=== PATIENT | male | born 1970 | race Caucasian/White ===

== ENCOUNTER 2024-07-06 04:13 | Emergency (ER) | payer BC, SELFPAY ==
[2024-07-06 04:16] VITALS: BP 205/140
[2024-07-06 04:32] VITALS: BMI 29.6
--- NOTE | 2024-07-06 04:39 | ED.GENMED ---
History of Present Illness
General
Chief Complaint: Blood Pressure Problem
Source: patient
Exam Limitations: none
Time Seen by Provider: 07/06/24 04:22
Nursing documentation reviewed up to this point in time: agreed with
History of Present Illness
History of Present Illness:
This is a 54-year-old gentleman with history of hypertension chronically maintained on lisinopril 10 mg daily. He also has history of mitral valve repair 3 years ago. He states blood pressure is generally well-controlled 120s over 70s to 80. He
follows with a nurse discharge planner, Dr. Tello in [facility] cardiology. After receiving COVID booster vaccine 1 month ago he has not been feeling well with some nasal congestion, fatigue, intermittent cough and intermittent shortness of breath.
His blood pressure has been trending up over the past month as well. His nurse discharge planner increased his lisinopril dose to 20 mg 3 weeks ago. Despite doing so his blood pressure has remained somewhat elevated, he has had intermittent shortness of
breath and palpitations and has been using his inhaler with relief of shortness of breath. He has not had a fever and he has tested himself for COVID and it has been negative.
He admits to consuming a fairly salty meal last night with sausage and noted some heart palpitations tonight feeling that his heart was beating somewhat hard and mildly rapid accompanied with some difficulty sleeping. He has been checking his blood
pressure throughout the night and concerned when it 'keeps going up' He denies chest pain, no back pain, no dizziness nor lightheadedness, no leg pain or swelling, no headache.
He took his lisinopril 20 mg dose just prior to arrival. Other than this his only other daily medication is low-dose aspirin.
Blood pressure at home 200/140.
He has no history of CAD, no history of CHF, no history of hyperlipidemia nor diabetes. He is a non-smoker. No recent travel.
He is prescribed rescue inhaler for occasional cough and shortness of breath. Generally 1 inhaler lasts him a full year.
Past History
Past History
ED Past Medical History: Asthma, HTN and Valvular disease (Mitral valve repair 2020)
ED Past Surgical History: Cardiac (Mitral valve repair 2020)
Social History
Tobacco: Non-smoker
Alcohol: Occasional
Drug: None
Personal:
Living: with family
Employment: Employed
Family History
Family History: Other (Noncontributory)
Phy Exam
Physical Exam
Physical Exam:
GENERAL: 54-year-old gentleman appears his stated age, awake and alert, mildly apprehensive otherwise in no acute distress. Easily communicative. Mild nasal, stuffy voice is noted. He is afebrile. Hypertensive at 205/140. is accompanying.
EYE: anicteric
NECK: Supple, nontender, no meningismus, no significant adenopathy. No JVD.
ENT: posterior pharynx is clear, oral mucosa is moist. TM clear b/l, nares have moderately boggy pale blue turbinates with scant clear rhinorrhea.
CARDIAC: Regular rate rhythm, mildly tachycardic. no murmur.
LUNGS: Clear breath sounds bilaterally, no acute respiratory distress, no wheezes/rales/rhonchi
ABDOMEN: Soft, nondistended, without focal tenderness, no r/g, normoactive BS.
NEUROLOGICAL: Alert and oriented x3, no focal neuro deficits. Gait is steady.
SKIN: Warm and dry, normal color, skin intact. No rash.
MUSCULOSKELETAL: No C/C/E. peripheral pulses are full and equal b/l. No palpable tenderness.
PSYCH: Normal and appropriate interaction.
Course
Orders/Labs/Results
Orders:
Orders
07/06/24 04:35
EKG [Electrocardiogram (*1)] Urgent
Reason for Study: Hypertension, Benign
EKG- Treatment ONCE
07/06/24 04:44
Complete Blood Count/With Diff Urgent
Comprehensive Metabolic Panel Urgent
Magnesium Urgent
NT-proBNP Urgent
TSH Reflex To Free T4 Urgent
Troponin I Urgent
07/06/24 04:48
Metoprolol [Lopressor] 5 mg IV NOW STA
Abnormal Lab Results
07/06/24
04:44
MCH 32.2 H pg
(27.0-31.0)
Glucose 111 H mg/dl
(70-99)
Calcium 10.5 H mg/dl
(8.4-10.2)
07/06/24 04:44
07/06/24 04:44
Vital Signs
Initial and Last Documented VS:
Initial Vital Signs
Temp Pulse Resp BP Pulse Ox
97.8 F 108 24 205/140 98
07/06/24 04:16 07/06/24 04:16 07/06/24 04:16 07/06/24 04:16 07/06/24 04:16
Last Documented Vital Signs
Temp Pulse Resp BP Pulse Ox
97.8 F 78 10 138/104 98
07/06/24 04:16 07/06/24 05:30 07/06/24 05:30 07/06/24 05:30 07/06/24 04:16
MDM/Problems Addressed
Differential Diagnosis Includes:
History of hypertension, he presents with accelerated hypertension. Concern for endorgan damage such as acute kidney injury, CHF, coronary ischemia. No complaints of headache, no focal neurodeficits�nothing to suggest neurologic involvement.
Will check labs, EKG
Will trial an IV dose of Lopressor.
Chronic conditions affecting care: HTN
Acute Exacerbation and/or Progression of Chronic Illness: HTN
*Pulse Oximetry
Patient hypoxic: no
*EKG
Interpreted by ED Provider?: Yes
Comparison EKG: no comparison EKG present
Rate: normal
Rhythm: sinus
[place]: normal axis
Interval: normal interval
QRS Pattern: normal QRS
Ischemia: non-specific ST changes (Flattened T waves inferolaterally. No old EKG to compare)
*Director Strategy Interpretation
Rate: normal
Interpretation: normal
Rhythm: sinus
*Critical Care Note
Total Time (30-74mins, 75-104mins- exclusive of procedures): Not Applicable
Update Note
Update Note:
Blood pressure improving without intervention. I had initially ordered IV Lopressor but blood pressure markedly improved prior to administration thus Lopressor has been held.
Blood pressure currently 130/90.
Patient resting comfortably.
Monitor shows normal sinus rhythm without ectopy.
EKG shows normal sinus rhythm, flattened T waves laterally otherwise unremarkable. No old EKG to compare.
Labs are all unremarkable including negative troponin, normal renal function, normal BNP.
I suspect patient's high sodium consumption yesterday were cause for his palpitations and accelerated hypertension.
Discussed importance of maintaining a strict low-sodium diet. Otherwise stay well-hydrated on a daily basis.
Continue lisinopril 20 mg daily.
Recommend he continue to monitor his blood pressure but only once per day, record results and put that cuff away until the next day. Significant element of underlying anxiety causing uptrend in blood pressure as well.
Follow-up with nurse discharge planner with daily BP trends and recheck.
ED Attending Note
-
Portions of this chart may have been created with voice recognition software.� Occasional wrong word or��sound alike� substitutions may have occurred due to the inherent limitations of voice recognition software.
Discharge Plan
Departure
Patient Disposition: Home (Routine Discharge)
Date of Disposition: 07/06/24
Time of Disposition: 06:04
Patient with high blood pressure during this ER visit?: No
Condition: Good
Discharge Problem:
Accelerated essential hypertension
Instructions: High Blood Pressure (DC), Palpitations (DC), Low-sodium diet
Prescriptions:
No Action
multivitamin Tablet
1 tab PO DAILY
lisinopril 20 mg Tablet
20 mg PO DAILY
aspirin 81 mg Tablet,Delayed Release (Dr/Ec)
81 mg PO DAILY
Referrals:
Katty Montalvo MD [Family Provider] - Call in 1-3 days for appt
Activity Restrictions/Additional Instructions:
Maintain a strict low-sodium diet.
Stay well-hydrated on a daily basis.
Continue lisinopril 20 mg daily.
Continue to monitor your blood pressure but only once daily, record results and then put that cuff away until the following day.
Follow-up with your nurse discharge planner with blood pressure trends and for recheck.
Interventions
Interventions:
*Risk Screen - Suicide Last Done: 07/06/24 04:16
*General Assessment Last Done: 07/06/24 04:32
*Neglect/Abuse Screening Last Done: 07/06/24 04:16
*ED COVID-19 Vaccine History Last Done: 07/06/24 04:32
ED- Cardiac Assessment Last Done: 07/06/24 04:32
ED- Neurological Assessment Last Done: 07/06/24 04:32
ED- Pulmonary Assessment Last Done: 07/06/24 04:32
Discharge Date and Time
Print Language: OCCITAN
[2024-07-06 04:49] VITALS: BP 150/102
[2024-07-06 05:00] VITALS: BP 142/104
[2024-07-06 05:00] LABS: % Basophils 0.7 % (0-2); % Eosinophils 2.8 % (0-6); % Immature Granulocytes 0.5 % (0-0.5); % Lymphocytes 28.5 % (20.5-51.1); % Monocytes 8.5 % (1.7-9.3); Absolute Eosinophils 0.2 10^3/uL (0-0.7); Absolute Lymphocytes 1.7 10^3/uL (1.2-3.4); Absolute Monocytes 0.5 10^3/uL (0.1-0.6); Absolute Neutrophils 3.5 10^3/uL (1.4-6.5); Mean Corp Hgb Conc. 36.4 g/dL (33.0-37.0); Mean Corpuscular Hgb 32.2 pg (27.0-31.0); Mean Corpuscular Volume 88.5 fL (80.0-94.0); Mean Platelet Volume 9.9 fL (7.4-10.4); Nucleated Red Blood Cells % 0 % (-); Platelet Count 200 10^3/uL (130-400); Red Blood Cell Count 4.97 10^6/uL (4.70-6.10); Red Cell Dist. Width 12.5 % (11.5-14.5)
[2024-07-06 05:23] LABS: ALT (SGPT) 27 U/L (0-50); AST (SGOT) 24 U/L (17-59); Albumin 4.5 g/dl (3.5-5.0); Alkaline Phosphatase 75 U/L (38-126); Blood Urea Nitrogen 17 mg/dl (9-20); Calcium 10.5 mg/dl (8.4-10.2); Carbon Dioxide 25 mmol/L (22-30); Chloride 102 mmol/L (98-107); Estimated Creatinine Clearance 72 ml/min; Glucose 111 mg/dl (70-99); Magnesium 1.8 mg/dl (1.6-2.3); Potassium 4.1 mmol/L (3.5-5.1); Sodium 141 mmol/L (135-145); Total Bilirubin 0.6 mg/dl (0.2-1.3); Total Protein 7.4 g/dl (6.3-8.2); eGFR > 60.00
[2024-07-06 05:30] VITALS: BP 138/104
[2024-07-06 05:35] LABS: NT-proBNP 53.5 pg/ml; Troponin I < 0.012 ng/ml
[2024-07-06 05:52] LABS: TSH Reflex To Free T4 2.63 uIU/ml (0.47-4.68)
[2024-07-06 06:07] VITALS: BP 134/100
== END 2024-07-06 06:22 | disposition home or self-care (01) ==
LOC: EMR 04:13
PROVIDERS: EMERGENCY PHYSICIAN Emergency Medicine; FAMILY PHYSICIAN Family Medicine
DX: I10 Essential (primary) hypertension (principal); J45.909 Unspecified asthma, uncomplicated; F41.9 Anxiety disorder, unspecified; Z79.899 Other long term (current) drug therapy
CPT/HCPCS: 99284; 80053; 83735; 83880; 84443; 84484; 85025; 93005